=== PATIENT | female | born 1955 | race Caucasian/White ===

== ENCOUNTER → 2016-09-17 | Day surgery (SDC) | payer MEDICARE, BC ==
[~2016-09-17] MED LIST: ACETAMINOPHEN500 M3 PO; AMBIEN10 MG PO; AMITRIPTYLINE H25 MG PO; CELEBREX PO; ESCITALOPRAM OX10 MG PO; ESTRACE PO; ESTRACE2 M1 PO; ESTRADIOL0.5 MG PO; FISH OIL500 M2 PO; FLEXERIL PO; FLEXERIL10 MG PO; FOLIC ACID PO; HYDROCODONE-A1 UDTA3 PO; NEURONTIN600 MG PO; NIASPAN1000 MG PO; ORENCIA IV; RASUVO 2020 MG/0.4 SUBQ; SYNTHROID PO; SYNTHROID112 MCG PO; TRAMADOL HCL50 M2 PO; TRIAMTERENE-HCT1 TA6 PO; TYLENOL #3 PO; VICODIN ES 7.51 EACH PO; VITAMIN D31000 UNIT PO; VYTORIN 10/20 T1 TAB PO; ZOLPIDEM TARTRA10 MG PO
--- NOTE | ~2016-09-17 | OR ---
Unit #: [id number] #: [id number] Patient: NA ALVAREZ [id number] [facility]. [place], [place] [address] [id number] MR#: [id number] NAME: NA ALVAREZ. ROOM: Date of Procedure: 09/17/2016 Admission Date: 09/17/2016 Surgeon: Jair Cabrera M.D. : 1955 Attending Physician: Jair Cabrera M.D. Primary Care Physician: Adam Quintanilla M.D. OPERATIVE REPORT PRIMARY CARE PHYSICIAN Adam Quintanilla M.D. PREOPERATIVE DIAGNOSIS Colorectal cancer screening in an average-risk patient. PROCEDURES PERFORMED Colonoscopy and argon plasma coagulation ablation. POSTOPERATIVE DIAGNOSES Single angiodysplasia or AVM in the cecum. This was ablated using argon plasma coagulation therapy. Otherwise, examination was normal up to cecum. The quality of the prep was good. No polyps were present or seen. RECOMMENDATIONS Repeat colonoscopy in 10 years. SEDATION USED MAC. DESCRIPTION OF PROCEDURE Following detailed explanation of the potential risks and complications of a colonoscopy, namely perforation, bleeding, and complications related to sedation, the patient was brought to GI lab and laid in the left lateral decubitus position. A digital rectal examination was performed, which was normal. Lubricated tip of the Olympus video colonoscope was inserted through the anus and advanced under direct vision. The scope was advanced and passed up to sigmoid into descending colon. No diverticula were noticed in this area. The scope tip was then navigated all the way up to cecum with visualization of ileocecal valve and the appendiceal orifice. Preparation was excellent with good visualization and photodocumentation was obtained. Successive segments of the colonic mucosa were examined upon withdrawal. Single angiodysplasia or AVM was seen in the cecum adjacent to appendiceal orifice. This was about 7 or 8 mm in size. It was ablated using argon plasma coagulation therapy at standard settings. Excellent coagulum was formed and photodocumentation was obtained. No polyps, diverticula, or hemorrhoids noted. The entire colonic mucosa being normal. The scope was then withdrawn. The patient returned to the recovery area. She tolerated the procedure without any postprocedure complications. Unit #: [id number] #: [id number] Patient: NA ALVAREZ Dictated by... Aria Noonan/shashank TD: 09/17/2016 12:09 JOB #: [id number] CC: Adam Quintanilla M.D. OPERATIVE REPORT Page 1 of 1 X Jair Cabrera MD X PROCEDURE OPERATIVE NOTE
== END | disposition home or self-care (01) ==
LOC: COPS 06:54
DX: Z12.11 Encounter for screening for malignant neoplasm of colon (principal); K55.20 Angiodysplasia of colon without hemorrhage; E03.9 Hypothyroidism, unspecified; K21.9 Gastro-esophageal reflux disease without esophagitis; Z88.6 Allergy status to analgesic agent; Z88.8 Allergy status to other drugs, medicaments and biological substances; Z91.040 Latex allergy status; Z79.899 Other long term (current) drug therapy; Z90.711 Acquired absence of uterus with remaining cervical stump; Z90.81 Acquired absence of spleen; Z98.1 Arthrodesis status; Z98.890 Other specified postprocedural states